=== PATIENT | male | born 1995 | race African-American/Black ===

== ENCOUNTER 2024-11-20 22:41 | Emergency (ER) | payer OTHER, SELFPAY ==
[2024-11-20] MEDS ORDERED: Azithromycin 250 MG TAB ONE (23:11)
[2024-11-20] MEDS ORDERED: cefTRIAXone (ROCEPHIN) 250 MG VIAL ONE (23:12)
[2024-11-20] MEDS ORDERED: Lidocaine 1% PF 5 ML VIAL ONE (23:12)
[2024-11-20 23:30] LABS: Bilirubin Negative (Negative); Blood, Urine Negative (Negative); CAUTI Indications for Culture Dysuria,urgency,freq; Clarity Clear (Clear); Glucose, Urine (Dipstick) Negative (Negative); Ketone, Urine Negative (Negative); Leukocyte Negative (Negative); Nitrite Negative (Negative); Protein, Urine (Dipstick) Negative (Neg-Trace); RBC/HPF None Seen HPF (0-3); Squamous Epithelial 0-3 HPF (0-3); Urobilinogen 0.2 mg/dL (Less than 2); WBC/HPF None Seen HPF (0-3); pH, Urine 5.5 (5.0-9.0)
[2024-11-20 23:31] LABS: Urine Culture Reflex No No
[2024-11-21 11:59] LABS: HIV (1/2) Antibody/Antigen NONREACTIVE (NonReactive)
[2024-11-22 11:34] LABS: Syphilis Antibody Nonreactive (Nonreactive)
== END 2024-11-20 23:56 | disposition home or self-care (01) ==
LOC: MADERS 22:41
DX: A63.0 Anogenital (venereal) warts (principal); F17.210 Nicotine dependence, cigarettes, uncomplicated
CPT/HCPCS: 36415; 81001; 86780; 87389; 96372; 99283; J0696